=== PATIENT | male | born 1985 | race Caucasian/White ===

== ENCOUNTER 2016-11-16 04:45 | Inpatient (IN) | payer MEDICAID, SELFPAY ==
[2016-11-16] VITALS (12 sets, daily range): BP systolic 119–146; BP diastolic 60–85; O2SAT 92
[~2016-11-16] VITALS: Ht 175.3 cm; Wt 88.3 kg
[2016-11-16 05:07] LABS: BASO % 0.4 % (0.0-1.0); EOS # 0.1 K/mm3 (0.0-0.50); EOS % 0.5 % (0.0-3.0); LARGE UNSTAINED CELL # 0.4 K/mm3 (0.0-0.4); LARGE UNSTAINED CELL % 3.7 % (0.0-4.0); LYMPH # 4.6 K/mm3 (1.5-4.5); MEAN CORPUSCULAR HEMOGLOBIN 29.3 pg (27.0-33.0); MEAN CORPUSCULAR HGB CONC 34.3 g/dl (32.0-36.5); MEAN CORPUSCULAR VOLUME 85.3 fl (80.0-96.0); MONO # 0.7 K/mm3 (0.0-0.8); MONO % 6.2 % (0.0-5.0); NEUTROPHILS # 5.8 K/mm3 (1.8-7.7); NEUTROPHILS % 52.1 % (36.0-66.0); PLATELET COUNT, AUTOMATED 254 k/mm3 (150-450); RED CELL DISTRIBUTION WIDTH 12.3 % (11.5-14.5); WHITE BLOOD COUNT 11.2 K/mm3 (4.0-10.0)
[2016-11-16 05:30] LABS: ABG BASE EXCESS -2.8 (-2.0-2.0); ABG HCO3 23.2 MEQ/L (22.0-26.0); ABG PARTIAL PRESSURE CO2 44.5 mmHg (35.0-45.0); ABG STANDARD HCO3 21.7 MEQ/L (22.0-26.0); ABG TOTAL CO2 24.6 MEQ/L (22.0-29.0); ABG pH (ARTERIAL) 7.335 UNITS (7.350-7.450)
[2016-11-16 05:32] LABS: ABG PARTIAL PRESSURE O2 45.4 mmHg (75.0-100.0)
[2016-11-16 05:40] LABS: ALBUMIN 3.6 GM/DL (3.2-5.2); ALKALINE PHOSPHATASE 78 U/L (45-117); ALT/SGPT 58 U/L (12-78); ANION GAP 13 MEQ/L (8-16); AST/SGOT 43 U/L (15-37); BILIRUBIN,DIRECT 0.2 MG/DL (0.0-0.2); BILIRUBIN,TOTAL 0.7 MG/DL (0.2-1.0); BLOOD UREA NITROGEN 12 MG/DL (7-18); CALCIUM LEVEL 8.1 MG/DL (8.5-10.1); CARBON DIOXIDE LEVEL 27 MEQ/L (21-32); CHLORIDE LEVEL 98 MEQ/L (98-107); CREATININE FOR GFR 1.27 MG/DL (0.70-1.30); GLOMERULAR FILTRATION RATE > 60.0 (>60); GLUCOSE, FASTING 132 MG/DL (70-105); POTASSIUM SERUM 3.3 MEQ/L (3.5-5.1); SODIUM LEVEL 138 MEQ/L (136-145); TOTAL PROTEIN 7.6 GM/DL (6.4-8.2)
[2016-11-16] MEDS ORDERED: NS 1,000 ML IV ONE (05:45)
[2016-11-16 05:51] LABS: METHADONE URINE NEGATIVE (NEGATIVE)
[2016-11-16] MEDS ORDERED: ISOVUE-370 76% 100ML VIAL (Q9967) As Ordered ONE (05:52)
--- NOTE | 2016-11-16 06:40 | REPUSA ---
CLINICAL HISTORY: Hypoxic, exclude PE. TECHNIQUE: Multiple incremental axial, coronal and oblique images are obtained from the thoracic inle t to the upper abdomen. Intravenous contrast material was administered as per pulmonary embolism prot ocol. COMMENTS: Bilateral widespread pulmonary edema and alveolar infiltrates. There is excellent opacification of pulmonary arterial system without evidence for pulmonary embolism . Aorta is of normal caliber without evidence for dissection or aneurysm. There is no evidence of pleural or parenchymal mass. There are no pleural effusions. There is no evid ence of hilar or mediastinal lymphadenopathy. The heart and great vessels are within normal limits. Images of the upper abdomen demonstrate no evidence of adrenal mass. The bony structures are free of lytic or blastic lesions. IMPRESSION: No evidence for pulmonary embolism. Bilateral widespread pulmonary edema and alveolar infiltrates. Pulmonary edema, severe multifocal inf ection, ARDS and alveolar hemorrhage are included in the differential diagnosis. Thank you for your kind referral of this patient.
[2016-11-16] MEDS ORDERED: PIPERACILLIN/TAZOBACTAM SOD 3.375 GM in D5W MINI-BAG PLUS 50 ML IV ONE (07:00)
[2016-11-16 07:10] LABS: ABG BASE EXCESS -2.5 (-2.0-2.0); ABG HCO3 22.3 MEQ/L (22.0-26.0); ABG PARTIAL PRESSURE CO2 38.9 mmHg (35.0-45.0); ABG PARTIAL PRESSURE O2 198.2 mmHg (75.0-100.0); ABG STANDARD HCO3 22.5 MEQ/L (22.0-26.0); ABG TOTAL CO2 23.5 MEQ/L (22.0-29.0); ABG pH (ARTERIAL) 7.376 UNITS (7.350-7.450)
[2016-11-16] MEDS ORDERED: LORazepam 2 MG/ML VIAL (J2060) IV PRN (08:30)
[2016-11-16] MEDS ORDERED: ONDANSETRON 4MG/2ML VIAL (J2405) IV PRN (08:45)
[2016-11-16] MEDS: OXAZEPAM 10 MG CAP PO PRN (09:05)
[2016-11-16] MEDS ORDERED: MULTIVITAMIN ADULT IV ONE ×5 (10:00)
[2016-11-16] MEDS ORDERED: [UNRECOGNIZED DRUG - OTHER] IV ONE ×5 (10:00)
[2016-11-16] MEDS ORDERED: THIAMINE IV ONE ×5 (10:00)
[2016-11-16] MEDS ORDERED: FOLIC ACID IV ONE ×5 (10:00)
[2016-11-16] MEDS: NICOTINE 7 MG/24 HR TRANSDERMAL TD SCH (12:00)
[2016-11-16] MEDS: HEPARIN SOD (PORCINE) 5000 UNITS/ML VIAL SC SCH ×3 (12:00→22:10)
[2016-11-16] MEDS: PANTOPRAZOLE 40MG INJ (PROTONIX) (C9113) IV SCH (12:06)
[2016-11-16] MEDS: PIPERACILLIN/TAZOBACTAM SOD 3.375 GM in D5W MINI-BAG PLUS 50 ML IV SCH ×2 (14:28→22:10)
--- NOTE | 2016-11-16 21:19 | HPE ---
DATE OF ADMISSION: 11/16/2016 PRIMARY CARE PROVIDER: None. CHIEF COMPLAINT: Drug overdose, encephalopathy. HISTORY OF PRESENT ILLNESS: Significantly limited by encephalopathy. This is a 31-year-old male patient with underlying medical history of polysubstance abuse, who was found by emergency medical services (EMS) agonal, also wheezing on 100% nonrebreather initially, later switched to continuous positive airway pressure (CPAP) pressure support of 10, 100% FiO2. Given Narcan with improvement. Urine toxicology (U-tox) showed opiate, cocaine, and amphetamine. The patient stated that he has a history of intravenous (IV) drug use, does not know what happened this time. Is very vague about a story. Denies acute drug use although his U-tox is positive. The patient is a very poor historian. Denies any suicidal ideation or depression. Denies any chest pain, pressure or discomfort. Denies any cough. The patient was weaned off CPAP in the emergency room with 40% Venti-mask, holding a saturation of 92. PAST MEDICAL HISTORY: 1. Hepatitis C. 2. Polysubstance abuse. 3. IV opiate use. PAST SURGICAL HISTORY: Liver biopsy. FAMILY HISTORY: Noncontributory. ALLERGIES: BACTRIM. SOCIAL HISTORY: Smokes half pack of cigarettes per day for eight years. Denies alcohol drinking. REVIEW OF SYSTEMS: 10-point review of systems all negative except for those mentioned in the history of present illness (HPI). HOME MEDICATIONS: None. PHYSICAL EXAMINATION: VITAL SIGNS: Temperature 98.6, pulse 129, respirations 22, blood pressure 146/85 , pulse oximetry 95% on 50% Venti-mask. GENERAL: The patient alert, arousable, oriented to person and place, in no acute distress. HEENT: Normocephalic, atraumatic. PULMONARY: Bilateral rhonchi. CARDIAC: Regular rate and rhythm. Tachycardia. S1, S2. ABDOMEN: Soft, nontender, nondistended. EXTREMITIES: No edema. LABORATORY DATA: WBC 11.2, hemoglobin and hematocrit 18.7 over 54.6, platelets 254. Chemistry: Sodium 138, potassium 3.2, chloride 98, bicarbonate 27, BUN 12, creatinine 1.27, lactic acid 4.2. Troponin negative times one. TSH negative. U-tox positive for amphetamine, opioids and cocaine. ASSESSMENT AND PLAN: This is a 31-year-old male patient with underlying medical history of hepatitis C, intravenous drug abuse, admitted for lethargy and drug overdose with hypoxic respiratory failure. 1. Acute hypoxic respiratory failure, likely secondary to aspiration, given patient was found down on the floor. Initially on CPAP with imaging CT angiogram showing no pulmonary embolism (PE), but evidence of pulmonary edema, likely secondary to hypoxia and asphyxiation. Oxygen supplementation. Continue to monitor. Treat for aspiration pneumonia with Zosyn. Follow cultures. 2. Lactic acidosis likely secondary to hypoxia. Lactic acid resolving. IV fluids have been given. 3. Drug overdose with lethargy, encephalopathy. The patient's mental status has been improving. Given Narcan. U-tox is appreciated. Followup ethanol level. Monitor for withdrawal though the patient denies any alcohol use. Cardiac enzymes negative times two. Electrocardiogram (EKG) is appreciated. Thyroid stimulating hormone (TSH) negative. Serax as needed. Monitor for withdrawal. Banana bag. 4. Hypokalemia. Potassium supplemented. 5. Chronic kidney disease (CKD). Monitor blood urea nitrogen (BUN) and creatinine. 6. Smoking. Nicotine patch. 7. Deep venous thrombosis (DVT) prophylaxis, heparin subcutaneous. DISPOSITION PLANNING: Patient on one-to-one observation, pending psychiatric evaluation. Treatment for aspiration pneumonia as above. MTDD
[2016-11-16] MEDS ORDERED: SLF 3 ML SYR IV PRN (23:30)
[2016-11-17] MEDS: NS 1,000 ML IV SCH ×2 (02:24→13:06)
[2016-11-17 04:58] VITALS: BP 134/61
[2016-11-17 05:18] LABS: MEAN CORPUSCULAR HEMOGLOBIN 29.5 pg (27.0-33.0); MEAN CORPUSCULAR HGB CONC 34.8 g/dl (32.0-36.5); MEAN CORPUSCULAR VOLUME 84.6 fl (80.0-96.0); RED CELL DISTRIBUTION WIDTH 12.5 % (11.5-14.5); WHITE BLOOD COUNT 14.4 K/mm3 (4.0-10.0)
[2016-11-17 05:41] LABS: ANION GAP 5 MEQ/L (8-16); BLOOD UREA NITROGEN 14 MG/DL (7-18); CALCIUM LEVEL 8.1 MG/DL (8.5-10.1); CARBON DIOXIDE LEVEL 31 MEQ/L (21-32); CHLORIDE LEVEL 103 MEQ/L (98-107); GLOMERULAR FILTRATION RATE > 60.0 (>60); GLUCOSE, FASTING 89 MG/DL (70-105); POTASSIUM SERUM 3.9 MEQ/L (3.5-5.1); SODIUM LEVEL 139 MEQ/L (136-145)
[2016-11-17] MEDS: SLF 3 ML SYR IV SCH ×2 (06:00→13:11)
[2016-11-17] MEDS: HEPARIN SOD (PORCINE) 5000 UNITS/ML VIAL SC SCH ×2 (06:00→13:10)
[2016-11-17] MEDS: PIPERACILLIN/TAZOBACTAM SOD 3.375 GM in D5W MINI-BAG PLUS 50 ML IV SCH ×2 (06:25→15:19)
--- NOTE | 2016-11-17 07:46 | REP ---
PORTABLE CHEST: AP portable view of the chest is performed. Diffuse bilateral infiltrates are present. The heart is normal in size. The visualized osseous structures appear unremarkable. IMPRESSION: Diffuse bilateral infiltrates. Signed by Luis Alfredo Lopez MD 11/17/2016 12:19 P
[2016-11-17 08:00] VITALS: BP 126/83
[2016-11-17] MEDS: NICOTINE 7 MG/24 HR TRANSDERMAL TD SCH (08:03)
[2016-11-17] MEDS: OXAZEPAM 10 MG CAP PO PRN (08:04)
[2016-11-17] MEDS: PANTOPRAZOLE 40MG INJ (PROTONIX) (C9113) IV SCH (08:05)
[2016-11-17] MEDS ORDERED: FOLIC ACID 1 MG TAB PO SCH (09:00)
[2016-11-17] MEDS ORDERED: MULTIVITAMINS/MINERALS THERAP 1 TAB PO SCH (09:00)
[2016-11-17] MEDS ORDERED: THIAMINE 100 MG TAB PO SCH (09:00)
[2016-11-17] MEDS ORDERED: LORazepam 2 MG/ML VIAL (J2060) IV STA ×2 (09:07→09:32)
[2016-11-17] MEDS ORDERED: IBUPROFEN 400 MG TAB PO PRN (09:15)
[2016-11-17] MEDS: LORazepam 2 MG/ML VIAL (J2060) IV SCH ×4 (11:00→18:22)
[2016-11-17 12:00] VITALS: BP 120/68
[2016-11-17 16:00] VITALS: BP 134/88
--- NOTE | 2016-11-17 17:42 | ECGEPIP ---
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
--- NOTE | 2016-11-17 19:53 | ECHO ---
DATE OF PROCEDURE: 11/17/2016 REFERRING PHYSICIAN: Dr. Shiela Ya INDICATION: Abnormal ECG. The patient measures 175 cm and weighs 88 kg. DIMENSIONS: IVS: 1.1 LV: 3.8 LVPW: 1.1 LA: 3.5 Aorta: 3.1 FINDINGS: The study is of good technical quality. Left ventricle is of normal size and systolic function with estimated ejection fraction (EF) around 65-70%. Right ventricle also appears normal size and systolic function. Both atria appear normal. All four cardiac valves were well seen and appear normal. No pericardial effusion is noted. Inferior vena cava is normal size. Aortic root appears normal. Aortic arch and abdominal aorta were not well seen. DOPPLER INTERROGATION: Reveals no aortic stenosis or insufficiency. There is also no mitral stenosis or insufficiency and no tricuspid insufficiency. Pulmonic valve is also functionally competent. Mitral inflow pattern and tissue Doppler imaging reveal grade 1 diastolic dysfunction but tissue Doppler velocities of mitral annulus are preserved. (E prime septal 11.5 and E prime lateral 12.5 cm/sec). CONCLUSIONS: 1. Study is of good technical quality. 2. Normal left ventricular (LV) size and systolic function. Probably grade 1 diastolic dysfunction. This is in setting of sinus tachycardia with heart rate fluctuating between 110 and 125 beat per minute. 3. No significant valvular disease. 4. Normal central venous pressure. 5. Unable to estimate pulmonary artery pressure. COMMENTS: Subacute bacterial endocarditis (SBE) prophylaxis is not recommended. Relatively normal echocardiogram. [facility]
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
--- NOTE | 2016-11-17 20:52 | ECGEPIP ---
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
[2016-11-18] MEDS ORDERED: LORazepam 2 MG/ML VIAL (J2060) IV PRN (08:30)
--- NOTE | 2016-11-20 09:07 | IPN ---
DATE OF VISIT: 11/17/2014 SUBJECTIVE: Mr. Leblanc is a 31-year-old male who was seen and examined at the bedside. The patient has mild agitation during the visit; however, according to the patient and nursing, the patient has been agitated and is threatening to leave the building. The patient had a limited communication with me and did not answer my questions regarding his general health. OBJECTIVE: VITAL SIGNS: Temperature 98.8, pulse 60, respiratory rate 22, blood pressure 120/68, pulse oximetry 96 on room air. Total intake 2370 mL, total output 1425. GENERAL APPEARANCE: The patient was lying in bed in no acute distress. The patient was awake but not oriented to time, place and person. HEENT: Normocephalic atraumatic. Pupils equal, round, and reactive to light. Oral mucosa is moist. NECK: Soft, supple, no thyromegaly. HEART: Tachycardic, normal S1, S2. LUNGS: Clear breath sounds bilaterally, good air movement. ABDOMEN: Soft, nontender. Positive bowel sounds in all quadrants. Nondistended. EXTREMITIES: There is no lower extremity edema. +2 pulses in both lower extremities. Normal range of motion, moves upper and lower extremities. LABORATORY DATA: White blood cells 14.4, red blood cells 5.31, hemoglobin 15.6, hematocrit 44.9, MCV 84.6, MCH 29.5, MCHC 34.8, RDW 12.5, platelet count 202. . Sodium 139, potassium 3.9, chloride 103, carbon dioxide 31,anion gap 5, BUN 14, creatinine 0.9. Glomerular filtration rate more than 60, fasting glucose 89, calcium 8.1, magnesium 2, C-reactive protein 8.16. Blood culture is pending at this time. ASSESSMENT AND PLAN: 1. Acute hypoxic respiratory failure. This is possibly secondary to aspiration. The patient has been started on Zosyn. However, at this time the patient is on room air and is stable. Will followup the cultures. 2. Likely acidosis possibly secondary to hypoxemia. Lactic acid has been resolved. The patient is on intravenous (IV) fluids. 3. Drug overdose with lethargy and encephalopathy. The patient has altered mental status secondary to chronic history of drug use. Cardiac enzymes are negative. Electrocardiogram (EKG) does not show any new pathology. Thyroid stimulating hormone (TSH) was negative. The patient is on Serax as needed, as well as folate, thiamine and Ativan. 4. Tachycardia. This is possibly secondary to drug use versus alcohol withdrawal. Due to the patient's history of cocaine we are not using beta mayte; however we will continue using Ativan to control the patient's symptoms. 5. Hypokalemia. The patient is on potassium supplement. 6. Chronic kidney disease. Will continue monitoring the patient's BUN and creatinine; however, today the patient's creatinine and glomerular filtration rate is in the normal range. 7. Smoking. Nicotine patch. 8. Deep venous thrombosis (DVT) prophylaxis. The patient is on heparin subcutaneously. My preceptor for this patient encounter was Dr. Shiela Ya. The preceptor was physically present in the building during the encounter and was fully available as needed. All aspects of the patient interview, examination, medical decision making process, and medical care plan development were reviewed and approved by the preceptor. The preceptor is aware and concurs with the plan as stated in the body of this note and will attest to such by his co-signature. I have both independently examined this patient as well as reviewed the note. I have discussed in detail with the resident the findings and plan of treatment as documented in the residents note. I will continue to follow the patient and offer further guidance to the patients care as necessary during this hospital stay. Shiela RODGERS
== END 2016-11-17 19:07 | disposition left against medical advice (07) | DRG 816 ==
LOC: M ED 08:10 → M ED INP 10:46 → M ED 11:29 → M ICU 11:45 → M PCU 22:28
PROVIDERS: ADMIT Hospitalist; ATTEND Hospitalist
DX: T40.5X4A Poisoning by cocaine, undetermined, initial encounter (principal); J96.01 Acute respiratory failure with hypoxia; G93.40 Encephalopathy, unspecified; T40.604A Poisoning by unspecified narcotics, undetermined, initial encounter; B18.2 Chronic viral hepatitis C; E87.6 Hypokalemia; F17.200 Nicotine dependence, unspecified, uncomplicated; N18.9 Chronic kidney disease, unspecified

== ENCOUNTER 2018-03-27 19:13 | Emergency (ER) | payer SELFPAY, MEDICAID ==
[2018-03-27] MEDS: KETOROLAC 30 MG/ML VIAL (J1885) IV (20:52)
[2018-03-27] MEDS: CLINDAMYCIN 900 MG in APPROPRIATE DILUENT 1 EA IV (20:52)
[2018-03-27 21:01] LABS: BASO # 0.1 10^3/uL (0.0-0.2); BASO % 0.4 % (0.0-1.0); EOS # 0.2 10^3/uL (0.0-0.50); EOS % 1.5 % (0.0-3.0); HEMATOCRIT 45.6 % (42.0-52.0); HEMOGLOBIN 14.9 g/dl (13.5-17.5); IMMATURE GRANULOCYTE % 0.3 % (0-3.0); LYMPH % 27.8 % (24.0-44.0); MEAN CORPUSCULAR HEMOGLOBIN 26.8 pg (27.0-33.0); MEAN CORPUSCULAR HGB CONC 32.7 g/dl (32.0-36.5); MONO # 1.5 10^3/uL (0.0-0.8); MONO % 10.4 % (0.0-5.0); NEUTROPHILS # 8.5 10^3/uL (1.8-7.7); NEUTROPHILS % 59.6 % (36.0-66.0); PLATELET COUNT, AUTOMATED 253 10^3/uL (150-450); RED BLOOD COUNT 5.56 10^6/uL (4.30-6.10); RED CELL DISTRIBUTION WIDTH 13.1 % (11.5-14.5); WHITE BLOOD COUNT 14.2 10^3/uL (4.0-10.0)
[2018-03-27 21:25] LABS: ERYTHROCYTE SEDIMENTATION RATE QNS mm/hr (0-15)
[2018-03-27 21:43] LABS: ERYTHROCYTE SEDIMENTATION RATE 22 mm/hr (0-15)
[2018-03-27 21:58] LABS: ANION GAP 8 MEQ/L (8-16); BLOOD UREA NITROGEN 9 MG/DL (7-18); C REACTIVE PROTEIN QUANTITATIV 6.74 MG/DL (0.00-0.30); CALCIUM LEVEL 8.3 MG/DL (8.5-10.1); CARBON DIOXIDE LEVEL 29 MEQ/L (21-32); CHLORIDE LEVEL 99 MEQ/L (98-107); CREATININE FOR GFR 0.67 MG/DL (0.70-1.30); GLOMERULAR FILTRATION RATE > 60.0 (>60); GLUCOSE, FASTING 97 MG/DL (70-100); POTASSIUM SERUM 4.1 MEQ/L (3.5-5.1); SODIUM LEVEL 136 MEQ/L (136-145)
[2018-03-27] MEDS ORDERED: ISOVUE-370 76% 100ML VIAL (Q9967) As Ordered (22:17)
== END 2018-03-27 23:30 | disposition left against medical advice (07) ==
LOC: M ED 19:13
DX: L03.211 Cellulitis of face (principal); I10 Essential (primary) hypertension; B19.20 Unspecified viral hepatitis C without hepatic coma; F33.9 Major depressive disorder, recurrent, unspecified; F41.9 Anxiety disorder, unspecified; M19.90 Unspecified osteoarthritis, unspecified site; Z88.1 Allergy status to other antibiotic agents; F17.210 Nicotine dependence, cigarettes, uncomplicated
CPT/HCPCS: Q9967

== ENCOUNTER 2018-10-24 15:54 | Emergency (ER) | payer SELFPAY ==
[~2018-10-24 15:54] MED LIST: MORP1TAB20 PO
[2018-10-24] MEDS ORDERED: LORazepam 2 MG/ML VIAL (J2060) IV STA ×2 (15:58→19:41)
[2018-10-24] MEDS ORDERED: MIDAZOLAM INJ 5 MG/ML VIAL (J2250) ONE (16:15)
[2018-10-24] MEDS: NS 1,000 ML IV ONE ×2 (19:58→22:49)
[2018-10-24] MEDS ORDERED: NS 1,000 ML IV ONE (21:00)
[2018-10-25 00:07] LABS: VENOUS BASE EXCESS 0.4 (-2.0-2.0); VENOUS HCO3 25.2 MEQ/L (23.0-27.0); VENOUS O2 SATURATION 99.6 % (60.0-80.0); VENOUS PARTIAL PRESSURE CO2 41.3 mmHg (38.0-50.0); VENOUS PARTIAL PRESSURE O2 236.9 mmHg (30.0-50.0); VENOUS PH 7.403 UNITS (7.330-7.430); VENOUS STANDARD HCO3 24.9 MEQ/L; VENOUS TOTAL CO2 26.4 MEQ/L (24.0-28.0)
[2018-10-25 00:11] LABS: HEMATOCRIT 51.8 % (42.0-52.0); HEMOGLOBIN 17.4 g/dl (13.5-17.5); MEAN CORPUSCULAR HEMOGLOBIN 27.4 pg (27.0-33.0); MEAN CORPUSCULAR HGB CONC 33.6 g/dl (32.0-36.5); MEAN CORPUSCULAR VOLUME 81.4 fl (80.0-96.0); PLATELET COUNT, AUTOMATED 257 10^3/uL (150-450); RED BLOOD COUNT 6.36 10^6/uL (4.30-6.10)
[2018-10-25 00:15] LABS: WHITE BLOOD COUNT 14.2 10^3/uL (4.0-10.0)
[2018-10-25 00:31] LABS: ALBUMIN 3.9 GM/DL (3.2-5.2); ALT/SGPT 42 U/L (12-78); BILIRUBIN,DIRECT 0.3 MG/DL (0.0-0.2); BILIRUBIN,TOTAL 0.9 MG/DL (0.2-1.0); BLOOD UREA NITROGEN 17 MG/DL (7-18); CALCIUM LEVEL 8.8 MG/DL (8.5-10.1); CARBON DIOXIDE LEVEL 25 MEQ/L (21-32); CHLORIDE LEVEL 108 MEQ/L (98-107); CPK CREATINE PHOSPHOKINASE 826 U/L (39-308); CREATININE FOR GFR 0.87 MG/DL (0.70-1.30); GLOMERULAR FILTRATION RATE > 60.0 (>60); GLUCOSE, FASTING 74 MG/DL (70-100); POTASSIUM SERUM 4.8 MEQ/L (3.5-5.1); SODIUM LEVEL 141 MEQ/L (136-145); TOTAL PROTEIN 7.7 GM/DL (6.4-8.2)
[2018-10-25 00:44] LABS: ATYPICAL LYMPH 4 % (0-5); BASOPHILS 2 % (0-4); EOSINOPHILS 2 % (0-5); LYMPHOCYTES 36 % (16-52); MONOCYTES 2 % (0-8); NEUTROPHILS 54 % (35-75)
[2018-10-25 00:45] LABS: PLATELET ESTIMATE NORMAL (NORMAL); SMUDGE CELLS 1+
[2018-10-25 01:48] LABS: AMPHETAMINES LEVEL URINE POSITIVE (NEGATIVE); BARBITURATES URINE NEGATIVE (NEGATIVE); BENZODIAZEPINES URINE POSITIVE (NEGATIVE); CANNABINOIDS URINE NEGATIVE (NEGATIVE); COCAINE METABOLITE URINE NEGATIVE (NEGATIVE); METHADONE URINE NEGATIVE (NEGATIVE); OPIATES URINE POSITIVE (NEGATIVE); PHENCYCLIDINE URINE NEGATIVE (NEGATIVE)
[2018-10-25 02:01] VITALS: BP 109/62
--- NOTE | 2018-10-26 01:06 | ECGEPIP ---
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
== END 2018-10-25 03:00 | disposition home or self-care (01) ==
LOC: EDBD 15:54 → M ED 15:54
DX: F19.10 Other psychoactive substance abuse, uncomplicated (principal); R00.0 Tachycardia, unspecified; B19.20 Unspecified viral hepatitis C without hepatic coma; F14.10 Cocaine abuse, uncomplicated; F15.10 Other stimulant abuse, uncomplicated; F11.10 Opioid abuse, uncomplicated; Z72.0 Tobacco use; Z79.891 Long term (current) use of opiate analgesic; Z88.8 Allergy status to other drugs, medicaments and biological substances
CPT/HCPCS: 36415; 80048; 80076; 80307; 82550; 82803; 85025; 93005; 96361; 96374; 96376; 99285; J2060; J2250

== ENCOUNTER 2018-11-30 22:16 | Emergency (ER) | payer SELFPAY ==
[2018-11-30 22:28] VITALS: BP 111/58
== END 2018-11-30 22:34 | disposition left against medical advice (07) ==
LOC: M ED 22:16
DX: Z53.29 Procedure and treatment not carried out because of patient's decision for other reasons (principal)

== ENCOUNTER 2020-10-19 10:18 | Emergency (ER) | payer OTHER, SELFPAY ==
[~2020-10-19] VITALS: Ht 175.3 cm; Wt 85.0 kg
[2020-10-19] MEDS ORDERED: DOXYCYCLINE HYCLATE 100MG TABLET PO ONE (12:00)
[2020-10-19] MEDS ORDERED: DOXY100C37 PO (12:01)
[2020-10-19 12:33] VITALS: BP 139/72
== END 2020-10-19 12:34 | disposition home or self-care (01) ==
LOC: M ED 10:18
DX: L66.2 Folliculitis decalvans (principal); L03.90 Cellulitis, unspecified; F17.200 Nicotine dependence, unspecified, uncomplicated; Z88.2 Allergy status to sulfonamides

== ENCOUNTER 2020-11-03 21:17 | Emergency (ER) | payer OTHER ==
[~2020-11-03] VITALS: Ht 175.3 cm; Wt 79.6 kg
[~2020-11-03 21:17] MED LIST changes: +DOXY100C37 PO
[2020-11-03 21:18] VITALS: BP 140/79
[2020-11-03] MEDS ORDERED: DOXYCYCLINE HYCLATE 100MG TABLET PO ONE (23:15)
[2020-11-03] MEDS ORDERED: KETOROLAC 60MG 2ML VIAL IM ONE (23:15)
[2020-11-03] MEDS ORDERED: DOXY100C37 PO (23:32)
== END 2020-11-04 00:31 | disposition home or self-care (01) ==
LOC: M ED 21:17
DX: L03.90 Cellulitis, unspecified (principal); L02.91 Cutaneous abscess, unspecified; I10 Essential (primary) hypertension; Z86.19 Personal history of other infectious and parasitic diseases; F41.9 Anxiety disorder, unspecified; F31.89 Other bipolar disorder; F17.200 Nicotine dependence, unspecified, uncomplicated; F11.10 Opioid abuse, uncomplicated; Z88.2 Allergy status to sulfonamides
CPT/HCPCS: 96372; 99283; J1885

== ENCOUNTER → 2022-01-21 | Outpatient (CLI) | payer OTHER ==
[~2022-01-21] MED LIST changes: +DOXY-443 PO; -DOXY100C37 PO
[2022-01-21 15:54] LABS: HEMATOCRIT 50.3 % (42.0-52.0); HEMOGLOBIN 16.5 g/dl (13.5-17.5); MEAN CORPUSCULAR HEMOGLOBIN 27.7 pg (27.0-33.0); MEAN CORPUSCULAR HGB CONC 32.8 g/dl (32.0-36.5); MEAN CORPUSCULAR VOLUME 84.4 fl (80.0-96.0); PLATELET COUNT, AUTOMATED 219 10^3/uL (150-450); RED BLOOD COUNT 5.96 10^6/uL (4.30-6.10); WHITE BLOOD COUNT 8.7 10^3/uL (4.0-10.0)
[2022-01-21 16:47] LABS: ALBUMIN 4.2 GM/DL (3.2-5.2); ALT/SGPT 69 U/L (12-78); BILIRUBIN,TOTAL 0.4 MG/DL (0.2-1.0); BLOOD UREA NITROGEN 14 MG/DL (7-18); CALCIUM LEVEL 9.8 MG/DL (8.5-10.1); CARBON DIOXIDE LEVEL 29 MEQ/L (21-32); CHLORIDE LEVEL 105 MEQ/L (98-107); CREATININE FOR GFR 0.78 MG/DL (0.70-1.30); GLOMERULAR FILTRATION RATE > 60.0 (>60); GLUCOSE, FASTING 89 MG/DL (70-100); POTASSIUM SERUM 4.4 MEQ/L (3.5-5.1); SODIUM LEVEL 140 MEQ/L (136-145); TOTAL PROTEIN 7.9 GM/DL (6.4-8.2)
[2022-01-21 17:13] LABS: GC DNA AMPLIFICATION NEGATIVE (NEGATIVE)
[2022-01-21 17:25] LABS: HEPATITIS B SURFACE ANTIGEN NEGATIVE (NEGATIVE)
[2022-01-21 17:54] LABS: HIV 1&2 SCREEN CENTAUR NEGATIVE (NEGATIVE)
[2022-01-21 18:08] LABS: HEPATITIS C VIRUS ABY INDEX > 11.0 INDEX (<0.8)
== END ==
LOC: M WUC 14:21
PROVIDERS: ATTEND Family Medicine
DX: F11.20 Opioid dependence, uncomplicated (principal)

== ENCOUNTER → 2022-02-04 | Outpatient (CLI) | payer OTHER | LOC: M LAB 14:49 | PROVIDERS: ATTEND Family Medicine | DX: F11.20 Opioid dependence, uncomplicated (principal) ==